=== PATIENT | female | born 1980 | race Caucasian/White ===

== ENCOUNTER 2023-08-13 08:46 | Emergency (ER) | payer OTHER, SELFPAY ==
[2023-08-13 09:18] VITALS: BP 138/82; PULSE 67; RESP 18; TEMP 36.8; O2SAT 97; BMI 34.3
--- NOTE | 2023-08-13 14:39 | ED.GENADULT ---
HPI - General Adult General Chief complaint: Back Pain/Injury Stated complaint: back pain Time Seen by Provider: 08/13/23 14:17 Source: patient Mode of arrival: ambulatory Limitations: no limitations History of Present Illness ED Provider: Dayron Jules PA-C HPI narrative: 42 yold female healthy with no pmh presents to the ED for right sided low back pain radiating down left leg after repetetive bending and awkward movement at workl. 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 Patient denies any blunt trauma to the area. Patient states pain is worse with movement. Patient denies any sharp stabbing job like pain, nausea, vomiting, dysuria, hematuria, abdominal pain, fever, or chills. Related Data Previous Rx's ?Medication ?Instructions ?Recorded cephalexin 500 mg capsule 500 mg PO QID 7 days #28 caps 08/13/23 cyclobenzaprine 10 mg tablet 10 mg PO BEDTIME PRN muscle spasm 08/13/23 7 days #7 tabs naproxen 500 mg tablet 500 mg PO BID PRN pain 7 days #14 08/13/23 tabs Allergies Allergy/AdvReac Type Severity Reaction Status Date / Time No Known Allergies Allergy Verified 08/13/23 09:22 Review of Systems Review of Systems: Right-sided low back pain radiating down right leg Yes all other systems are reviewed and are negative PMFSH Social History Social History Advance Directives: No Physical Exam ED Vital Signs: Vital Signs - 24 hr 08/13/23 09:18 08/13/23 16:46 Temperature 98.3 F 98.3 F Pulse Rate 67 67 Respiratory Rate 18 18 Blood Pressure 138/82 138/82 Pulse Oximetry 97 97 Oxygen Delivery Method Room Air Room Air BMI result Body Mass Index 34.3 Const General: cooperative, healthy appearing, comfortable, no acute distress, well developed, alert, awake and Physically active Orientation/consciousness: oriented to person, oriented to place, oriented to time and patient oriented x3 HENMT Head: Yes normal to inspection, Yes No palpable skull fracture present, Yes normocephalic, Yes atraumatic and No abrasion Eyes General: appearance normal, both eyes and all related structures Neck Neck: Yes normal visual inspection, Yes full ROM, Yes no lymphadenopathy, Yes no meningeal signs, Yes trachea midline, Yes supple, No anterior neck swelling and No tender Chest Chest palpation & inspection: normal inspection of the chest and normal palpation of entire chest wall Resp Effort & Inspection: normal respiratory effort and able to speak in complete sentences Auscultation: clear to auscultation bilaterally Cardio Jugular venous distension: no JVD Heart sounds: S1 normal heart sound present and S2 normal heart sound present GI Inspection: Yes normal to inspection Palpation (GI): Soft to palpation, not firm, nontender, no guarding and not rigid General: No CVA tenderness and Yes no CVA tenderness Back/Spine/Pelvis Back: no CVA tenderness, No CVA tenderness and No back tenderness Back/spine/pelvis image: 1. positive for paraspinous tenderness on palpation. negative for crepitus, ecchymosis, erythema, or rash. negative for spinal tenderness on palpation. Skin General skin exam: no rashes or lesions noted, elasticity normal and turgor normal Neuro General: oriented to person, oriented to place, oriented to time, patient oriented x3, gait normal, tone normal, moves all extremities, Normal light touch and pain sensation, no meningeal signs, no focal motor deficits, CN's II-XI intact bilaterally and normal sensation to monofilament Extrem General: Yes normal to inspection, Yes full ROM and No capillary refill normal Medications Administered Discontinued Medications Generic Name Dose Route Start Last Admin Trade Name Freq PRN Reason Stop Dose Admin Ketorolac Tromethamine 30 mg 08/13/23 15:50 08/13/23 16:01 Ketorolac Tromethamine 30 Mg/Ml Vial IM 08/13/23 15:51 30 mg ONCE ONE Administration Medical Decision Making Medical Decision Making [facility] Narrative: 42-year-old female presents to ED for right-sided back pain radiating down right leg after heavy lifting ocular movement at work. Patient denies any dysuria, hematuria, flank pain, nausea, vomiting, abdominal pain, vaginal bleeding. Patient denies any urinary/ bowel incontinence. Patient denies any IV drug use. UA pending. UA: Urine shows white blood cell count with 4+ bacteria and over 20 squamous cells probably a dirty catch but will discharged with antibiotics. Patient explained worrisome sign informed to follow up with ED and primary care provider. not suspecting epidural abscess or cauda equina. not susepctiing kidney stones or pyelnophritis. not suspecting spine fracture. Differential Diagnosis Differential Diagnoses: The differential diagnosis associated with the presentation includes ( Back sprain, UTI, muscle spasm) Admission/Observation Consideration of admission/observation: Escalation of care including admission/observation considered Lab Data MDM Lab Attestation statement: I reviewed the patient's lab results. Labs: Lab Results 08/13/23 Range/Units 14:41 Urine Color Yellow Urine Appearance Cloudy Urine pH 6.0 (5.0-9.0) Ur Specific [place] 1.010 (1.005-1.025) Urine Protein Negative (Neg-Trace) mg/dL Urine Glucose (UA) Negative (Negative) mg/dL Urine Ketones Negative (Negative) mg/dL Urine Blood Negative (Negative) Urine Nitrite Negative (Negative) Ur Leukocyte Esterase Trace H (Negative) Urine RBC 0-2 (0-2) /HPF Urine WBC 6-10 H (0-5) /HPF Ur Squamous Epith Cells >20 (0-2) /HPF Urine Bacteria 4+ (None Seen) Hyaline Casts 0-2 (0-2) /LPF Urine Test NEGATIVE (NEGATIVE) Independent Historian Clinical information obtained from an independent historian. History obtained from or confirmed by: Other (parents) External Record Review External record reviewed: Other (prior visits) Prescription Management I considered prescription management with: Pain Medication and Antibiotic Discharge Plan Discharge Clinical Impression: Strain of lumbar region, UTI (urinary tract infection) Patient Disposition: Home, Self-Care Instructions: Muscle Strain (ED), Urinary Tract Infection in Women (ED), Low Back Strain (ED), Lower Back Exercises (ED) Additional Instructions: recommend follow-up with the primary care provider. Return to the ED immediately for severe back pain, urinary/ bowel incontinence, nausea, vomiting, abdominal pain, flank pain, fever, chills, dysuria, hematuria, numbness / tingling of lower extremities, paralysis of lower extremities, or any other concerning symptoms. Prescriptions: New naproxen 500 mg tablet 500 mg PO BID PRN (Reason: pain) 7 Days Qty: 14 0RF cyclobenzaprine 10 mg tablet 10 mg PO BEDTIME PRN (Reason: muscle spasm) 7 Days Qty: 7 0RF Rx Instructions: side effect is drowsiness. Do not take at work or while driving. cephalexin 500 mg capsule 500 mg PO QID 7 Days Qty: 28 0RF Stand Alone Forms: Work/School Release Interventions: ED Discharge Assessment Last Done: 08/13/23 16:46 Discharge Date/Time: 08/13/23 16:46 Print Language: Italian
[2023-08-13 14:51] LABS: Appearance Urine Cloudy; Color Urine Yellow; Glucose Urine UA Negative (Negative); Leukocyte Esterase Urine Trace (Negative); Nitrite Urine Negative (Negative); UMIC TRIGGER UACC YES; Urine Blood Negative (Negative); Urine Ketones Negative (Negative); Urine Protein Negative (Neg-Trace)
[2023-08-13 14:57] LABS: Bacteria Urine 4+ (None Seen); Hyaline Casts Urine 0-2 /LPF (0-2); RBC Urine 0-2 /HPF (0-2); Squamous Epithelial Cell Urine >20 /HPF (0-2); UACC Culture Trigger YES
[2023-08-13 15:01] LABS: UPreg QC Valid YES; Urine Pregnancy NEGATIVE (NEGATIVE)
[2023-08-13] MEDS: Ketorolac Tromethamine 30 MG/ML VIAL IM (16:01)
[2023-08-13 16:46] VITALS: BP 138/82; PULSE 67; RESP 18; TEMP 36.8; O2SAT 97
== END 2023-08-13 16:46 | disposition home or self-care (01) ==
PROVIDERS: Physician Assistant; Emergency Provider Emergency Medicine
DX: S39.012A Strain of muscle, fascia and tendon of lower back, initial encounter (principal); N39.0 Urinary tract infection, site not specified; X58.XXXA Exposure to other specified factors, initial encounter; Y93.9 Activity, unspecified; Y92.9 Unspecified place or not applicable; Y99.8 Other external cause status; Z79.899 Other long term (current) drug therapy
CPT/HCPCS: 81001; 81025; 87086; 87088; 87186; 96372; 99283; 99284; J1885